=== PATIENT | female | born 1990 | race Caucasian/White ===

== ENCOUNTER 2016-12-10 22:55 | Emergency (ER) | payer OTHER ==
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
[~2016-12-10 22:55] MED LIST: ALBUTEROL17 GM INH; AUGMENTIN PO; IBUPROFEN PO; KEFLEX PO; KLONOPIN0.5 MG PO; MOBIC PO; NAPROSYN500 MG PO; NEURONTIN300 MG PO; NO MEDICATIONS; ORUDIS75 M1 DOB; PEN-VEE K PO; PERCOCET 10/31 UDTA1 PO; PHENERGAN PO; PHENERGAN VC W120 M1 PO; PHENERGAN25 MG PO; PRENATAL VITAMI1 TA3 PO; RISPERDAL1 M1 PO; TRAMADOL HCL50 M2 PO; TYLENOL #3 PO; ULTRAM PO; VOLTAREN75 MG PO; ZITHROMAX PO
[2016-12-10] MEDS ORDERED: VALIUM2 MG (23:03)
== END 2016-12-11 | disposition home or self-care (01) ==
LOC: SED 22:55
DX: S90.32XA Contusion of left foot, initial encounter (principal); F17.210 Nicotine dependence, cigarettes, uncomplicated; Z91.010 Allergy to peanuts; Z91.013 Allergy to seafood; Z79.899 Other long term (current) drug therapy; W20.8XXA Other cause of strike by thrown, projected or falling object, initial encounter; Y92.009 Unspecified place in unspecified non-institutional (private) residence as the place of occurrence of the external cause
CPT/HCPCS: 73630; 99283; J1885